=== PATIENT | male | born 1950 | race Caucasian/White ===

== ENCOUNTER 2017-12-08 07:47 | Day surgery (SDC) | payer OTHER ==
[2017-12-03 12:17] VITALS: BMI 26.6
[2017-12-08] MEDS ORDERED: PROPOFOL 20 ML ONE ×2 (07:52)
[2017-12-08 09:38] VITALS: PULSE 64
[2017-12-08 09:55] VITALS: BP 101/65; TEMP 98.1
== END 2017-12-08 09:57 | disposition home or self-care (01) ==
LOC: FASU-ENDO 07:47
PROVIDERS: ATTEND Internal Medicine Gastroenterology
PROC: 0DJD8ZZ Inspection of Lower Intestinal Tract, Via Natural or Artificial Opening Endoscopic (ICD-10-PCS; principal; 2017-12-08 09:07)
DX: Z86.010 Personal history of colon polyps (principal); K57.30 Diverticulosis of large intestine without perforation or abscess without bleeding

== ENCOUNTER 2023-10-06 07:30 | Day surgery (SDC) | payer OTHER ==
[2023-10-04 13:01] VITALS: BMI 26.0
[2023-10-06] MEDS ORDERED: PROPOFOL 160 ML ONE (07:35)
[2023-10-06 08:04] VITALS: TEMP 97
[2023-10-06 08:56] VITALS: RESP 16
[2023-10-06 08:57] VITALS: BP 115/62; PULSE 64
== END 2023-10-06 09:13 | disposition home or self-care (01) ==
LOC: FASU-ENDO 07:30
PROVIDERS: ATTEND Internal Medicine Gastroenterology
PROC: 0DJD8ZZ Inspection of Lower Intestinal Tract, Via Natural or Artificial Opening Endoscopic (ICD-10-PCS; principal; 2023-10-06 08:22)
DX: Z12.11 Encounter for screening for malignant neoplasm of colon (principal); K57.30 Diverticulosis of large intestine without perforation or abscess without bleeding; Z86.010 Personal history of colon polyps